=== PATIENT | female | born 1935 | race Caucasian/White ===

== ENCOUNTER → 2017-04-28 | Outpatient (CLI) | payer OTHER ==
[~2017-04-28] VITALS: Ht 157.5 cm; Wt 75.8 kg
[~2017-04-28] MED LIST: AMBEREN; AZO CRANBERRY1 EAC1 PO; BENICAR HCT 201 EACH PO; BENICAR40 MG PO; BUPRENORPHINE HC2 MG SL; COLACE100 MG PO; DIAZEPAM 5 MG5 M1 PO; DULCOLAX STOOL100 MG PO; FLEXERIL PO; IBUPROFEN 200200 M1 PO; LIPITOR40 MG PO; MEDROLDOSEPACK PO; MOBIC7.5 MG PO; NORCO 5-325 TA1 EACH PO; NORCO 7.5-3251 EACH PO; PREDNISONE 20 M20 MG PO; PROLOPRIM100 MG PO; TRAMADOL 50 MG50 MG PO; VALIUM2 MG; VALIUM2 MG PO; VALIUM5 MG PO; ZANTAC 150MG T150 MG PO; ZOFRAN ODT4 MG PO
--- NOTE | ~2017-04-28 | HPC ---
[facility] [address] [address] PAIN MANAGEMENT CONSULTATION Name: LEONIDAS FUNES Room #: REG FELISA Caitlin.#: [id number] Admission: 04/28/17 Attend Phys: Ti Blunt MD Discharge: Date of : 33 Report #: [id number] THIS REPORT FOR: //name// CC: Aditya Magana MD Followup visit for cervicalgia with occipital radicular pain. The patient is a david 81-year-old I am seeing today in Dr. Lea's absence. Dr. Lea has been following the patient for a couple of years and has provided her with cervical epidural injections quite successfully. She had her first epidural injection in our clinic in May 2016 with nearly 6 months of good relief. She had a second injection in early 2016, also providing almost 4 months of pain relief. The pain relief she says is nearly complete. The pain today is described as an ice pick sensation in the back of the neck that then radiates through the C3-C4 and C2-C3 distribution up into the neck and head. At times it bothers her in the face. Gratefully the epidural injections provide dramatic improvement. Pain score today on presentation is 10/10, it is worsened with neck movements. Prior to injection, she was tried something additional like ice, medication, but this has not helped her on this occasion and her granddaughter brought her in for an injection. She is not on blood thinners. MEDICATIONS: Include meloxicam, ranitidine, cranberry, docusate, trimethoprim, atorvastatin and Benicar. ALLERGIES: SULFA and MORPHINE. PAST MEDICAL HISTORY: Significant for osteoarthritis. Although the chart documents rheumatoid arthritis the patient said she does not carry that diagnosis and will be corrected. SOCIAL HISTORY: She lives alone, she does not drive. She has supportive family. PHYSICAL EXAMINATION: GENERAL: She is anxious 81-year-old. VITAL SIGNS: Blood pressure 160/86, heart rate 98, respirations 16. BMI is 30.5. MUSCULOSKELETAL: She moves from sitting to standing position independently. She walks with a wobbling gait. 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 HEAD AND NECK: Normal. [facility] [address] [place] [address] PAIN MANAGEMENT CONSULTATION Name: LEONIDAS FUNES Room #: REG [facility]#: [id number] Admission: 04/28/17 Attend Phys: Ti Blunt MD Discharge: Date of : 33 Report #: [id number] EXTREMITIES: Range of motion is slightly limited in flexion, extension and rotation exacerbating her symptoms of cervicalgia with radiation into the occiput. Deep tendon reflexes are 1+ at biceps, triceps and brachioradialis. Deep tendon reflexes lower extremity are absent without evidence of hyperreflexia to suggest compression of the cord. IMPRESSION: Cervicalgia with radiculopathy. RECOMMENDATIONS: 1. Repeat epidural steroid injection under fluoroscopic guidance as this has been very helpful for the patient. 2. Precautions given regarding meloxicam and nonsteroidal anti-inflammatory drugs side effects. She will have a trial off of medication to see if she needed. 3. Follow up with Dr. Lea in the future. PROCEDURE: Cervical epidural injections, C7-T1 under fluoroscopic guidance. The patient was taken to the fluoroscopic suite, placed prone, skin prepped with ChloraPrep. Skin anesthetized over C7-T1. A 20-gauge Tuohy epidural needle advanced first attempt in the epidural space with loss of resistance. There was no blood or CSF aspirated. 1 mL of Omnipaque was injected with an excellent epidurogram achieved. Cephalad spread of the dye was noted. This was then followed by 3 mL of 0.5% lidocaine mixed with 80 mg of triamcinolone. She tolerated the procedure well. There were no complications. She was taken to recovery room for observation. Followup visit is planned as needed with Dr. Lea. I did address with the granddaughter a question regarding a series of injections. It is our opinion that a standard series of injections with multiple cortisone shots carries significant potential risks for the patient, particularly in 81-year-old prone to osteoporosis. If a single injection provides greater than 3 months of meaningful pain relief, I think that we should stick with single injection and avoid series. By: [id number] Ti Blunt MD /nt
[2017-04-28 09:31] VITALS: BP 160/86
== END | disposition home or self-care (01) ==
LOC: PAIN 07:53
DX: M54.12 Radiculopathy, cervical region (principal); G89.29 Other chronic pain; M19.90 Unspecified osteoarthritis, unspecified site; Z88.2 Allergy status to sulfonamides; Z79.899 Other long term (current) drug therapy; Z98.890 Other specified postprocedural states; Z88.8 Allergy status to other drugs, medicaments and biological substances; Z88.0 Allergy status to penicillin

== ENCOUNTER 2017-06-09 11:47 | Emergency (ER) | payer OTHER ==
[~2017-06-09] VITALS: Ht 157.5 cm; Wt 73.5 kg
[2017-06-09 12:29] LABS: URINE BILIRUBIN NEGATIVE (Negative); URINE BLOOD NEGATIVE (Negative); URINE COLOR YELLOW; URINE GLUCOSE-RANDOM* NEGATIVE (Negative); URINE KETONES NEGATIVE (Negative); URINE NITRITE NEGATIVE (Negative); URINE PROTEIN (DIPSTICK) NEGATIVE (Negative); URINE UROBILINOGEN 0.2 E.U./dl (0.2-1.0)
[2017-06-09 13:14] LABS: ABSOLUTE NEUTROPHILS 3.8 thou/uL (1.4-8.2); BASOPHILS 0.7 % (0.0-2.0); EOSINOPHILS 0.5 % (0.0-3.0); HEMATOCRIT 33.7 % (37.0-47.0); HEMOGLOBIN 11.6 gm/dL (12.0-15.0); LYMPHOCYTES 22.1 % (24.0-44.0); MCH 28.6 pg (26.0-34.0); MCHC 34.4 g/dL (28.0-37.0); MCV 83.1 fL (80.0-100.0); MONOCYTES 11.6 % (1.0-8.0); PLATELET COUNT 232 thou/uL (150-400); POLYS 65.1 % (36.0-66.0); RBC 4.06 mil/uL (4.20-5.00); RDW 14.9 % (10.5-14.5); WBC 5.9 thou/uL (4.0-11.0)
[2017-06-09 13:17] LABS: CALCIUM 9.8 mg/dL (8.5-10.1); CREATININE 1.5 mg/dL (0.6-1.0)
[2017-06-09 13:21] LABS: MANUAL DIFF NO
[2017-06-09 13:23] LABS: ALBUMIN 3.9 g/dL (3.4-5.0); DIRECT BILIRUBIN 0.2 mg/dL (<0.1-0.3); TOTAL PROTEIN 7.3 g/dL (6.4-8.2)
== END 2017-06-09 14:29 | disposition home or self-care (01) ==
LOC: ER 11:47
PROVIDERS: Emergency Medicine
DX: R53.1 Weakness (principal); R53.83 Other fatigue; Z90.710 Acquired absence of both cervix and uterus; Z98.890 Other specified postprocedural states; Z88.1 Allergy status to other antibiotic agents; Z88.0 Allergy status to penicillin; Z88.2 Allergy status to sulfonamides; Z88.5 Allergy status to narcotic agent; Z88.6 Allergy status to analgesic agent

== ENCOUNTER → 2017-06-16 | Outpatient (CLI) | payer OTHER ==
[~2017-06-16] VITALS: Ht 157.5 cm; Wt 73.9 kg
[~2017-06-16] MED LIST changes: +HYDROCODONE-AP1 EAC6 PO; +ZOFRAN4 MG PO
--- NOTE | ~2017-06-16 | HPC ---
[facility] [place] [address] [place] [address] PAIN MANAGEMENT CONSULTATION Name: LEONIDAS FUNES Room #: REG [facility].#: [id number] Admission: 06/16/17 Attend Phys: Aditya Lea DO Discharge: Date of : 33 Report #: [id number] THIS REPORT FOR: //name// CC: Aditya Phan MD DATE OF SERVICE: 06/16/2017 DATE OF SERVICE: 06/16/2017 CHIEF COMPLAINT: Neck pain, upper back pain, left-sided upper extremity pain. HISTORY OF PRESENT ILLNESS: As you know, the patient is an 81-year-old female who has made an appointment in followup visit to discuss the possibility of undergoing injections in the cervical region. The patient has done very well with intra-articular facet injections and third occipital nerve blocks. She made the appointment when her pain was at a level of 8/10. She returns today for this appointment now reporting pain score 3/10. States when the pain is present, it is sharp and burning, chronic in nature. She states moving her head exacerbates symptoms, ice, medications, walking, standing, tends to alleviate symptoms, certain positions tend to exacerbate pain. She has been referred back to our clinic to discuss options for treatment. ALLERGIES: SULFA, MORPHINE. CURRENT MEDICATIONS: Ranitidine, cranberry extract, docusate sodium, trimethoprim, atorvastatin, olmesartan. SOCIAL HISTORY: The patient denies tobacco, alcohol, IV or illicit drug use. 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 She is accompanied by her granddaughter, who is present in room today. IMAGING: No new imaging available. PHYSICAL EXAMINATION: VITAL SIGNS: Blood pressure 112/63, pulse is 94, respiratory rate 16, unlabored, the patient 99% on room air, height 5 feet 2 inches tall, weight 163 pounds, BMI calculated 29.8. GENERAL: Well developed, well nourished, well hydrated 81-year-old female appearing stated age, placing current pain score 3/10. HEENT: Normocephalic, atraumatic. Pupils equal, round, reactive to light. Extraocular muscles are intact. NEUROLOGIC: Speech remains fluent. The patient deemed a fair historian. LUNGS: Clear, no wheeze, rhonchi or rales. CARDIOVASCULAR: Regular. No appreciable gallop or rub. [address] [address] PAIN MANAGEMENT CONSULTATION Name: LEONIDAS FUNES Room #: REG [facility]#: [id number] Admission: 06/16/17 Attend Phys: Aditya Lea DO Discharge: Date of : 33 Report #: [id number] ABDOMEN: Soft, nontender, obese. Normoactive bowel sounds. EXTREMITIES: Show no clubbing, no cyanosis, no edema. MUSCULOSKELETAL: Upper extremity strength remains symmetrical 5/5, intact to light touch from C5-T1 dermatomes. Deep tendon reflexes are symmetrical. Spurling test positive. There is palpatory tenderness over the paraspinal musculature, cervical spine. There is noted crepitus with rotation and lateral flexion more to leftward than right. ASSESSMENT: 1. Cervical radiculopathy. 2. Cervical spondylosis with radicular symptoms. 3. Myofascial pain. 4. Cervicalgia. 5. Chronic intractable pain. PLAN: 1. The patient has returned today in followup visit where we have discussed her recent exacerbation of symptoms. It appears that her symptoms are still related to the arthritic changes in the upper cervical region and the third occipital nerve causing radiation of symptoms over the occiput towards the postauricular area on the left. This appears to be the case in this patient again today. We discussed with the patient that 7-8/10 pain she had about 6 days ago. She made today's appointment and is now noting pain at 3/10. She has had alleviation of symptoms to the greatest degree possible leaving her with a tolerable 3/10 pain. She returns today in followup visit to discuss options for treatment. 2. We discussed with the patient options for treatment. These would include intra-articular facet injections, medial branch nerve blocks, radiofrequency lesioning including third occipital nerve on the left side. We also discussed medication management and physical therapy. After reviewing risks and benefits of all proposed treatment options, the patient chose to begin with medication therapy. 3. The patient will be started on hydrocodone 5/325 one tab every 8 hours p.r.n. for pain. I have given the patient #60 tablets, but I have advised the patient to take a half tab to one tab as needed for pain control. She is to initiate therapy with half tab. If this is effective utilize pack and half tab for pain control. If half tab is not effective, she can move to a full tab, but watch for side effects of somnolence, decreased mental acuity, disorientation, confusion, mental slowing and constipation. 4. The patient was provided a prescription of Zofran 2 mg dose 1 tab every 8 hours p.r.n. I have given the patient #45. This is to be utilized if the hydrocodone causes some nausea. The patient is confident that hydrocodone has caused nausea in the past. Yet, I am unable to find in any visit she was receiving hydrocodone. This may be something related to previous evaluations and other physician's offices. We have given the antiemetic to help for pain control if necessary. [facility] [address] [place] [address] PAIN MANAGEMENT CONSULTATION Name: LEONIDAS FUNES Room #: REG FELISA [facility]#: [id number] Admission: 06/16/17 Attend Phys: Aditya Lea DO Discharge: Date of : 33 Report #: [id number] 5. We will see the patient back in followup visit in 1 month. At that time, review efficacy of medication therapy and determine if a change in treatment may be necessary. <ELECTRONICALLY SIGNED> By: Aditya Lea DO 06/24/17 [id number] Aditya Lea DO /nt
[2017-06-16 12:52] VITALS: BP 112/63
== END | disposition home or self-care (01) ==
LOC: PAIN 05-12 11:27
DX: M47.22 Other spondylosis with radiculopathy, cervical region (principal); M79.1 Myalgia; G89.29 Other chronic pain

== ENCOUNTER → 2017-11-03 | Outpatient (CLI) | payer OTHER ==
[~2017-11-03] MED LIST changes: +CIPRO250 M1 PO; +PROCHLORPERAZINE5 M1 PO; +SENOKOT8.6 MG PO
== END ==
LOC: RAD 10:45
DX: M51.16 Intervertebral disc disorders with radiculopathy, lumbar region (principal); M25.552 Pain in left hip

== ENCOUNTER → 2018-04-27 | Outpatient (CLI) | payer OTHER ==
[~2018-04-27] VITALS: Ht 157.5 cm; Wt 74.1 kg
[~2018-04-27] MED LIST changes: -CIPRO250 M1 PO; -PROCHLORPERAZINE5 M1 PO
--- NOTE | ~2018-04-27 | HPC ---
[facility] [address] [place] [address] PAIN MANAGEMENT CONSULTATION Name: LEONIDAS FUNES [id number] Admission: 04/27/18 Attend Phys: Aditya Lea DO Discharge: Date of : 33 Report #: [id number] THIS REPORT FOR: //name// CC: Aditya Phan MD DATE OF SERVICE: 04/27/2018 CHIEF COMPLAINT: Neck pain, bilateral upper extremity pain with paresthesias. HISTORY OF PRESENT ILLNESS: As you know, the patient is an 82-year-old female who returns today in followup visit, requesting a cervical epidural injection under fluoroscopic guidance. As you are aware, the patient underwent epidural injection in low back to address low back symptoms and left lower extremity symptoms, which have nearly completely resolved. She returns unfortunately with neck pain, bilateral upper extremity pain for which she places pain score 10/10. She denies injury or trauma, returning today in followup visit to undergo cervical epidural injection under fluoroscopic guidance. ALLERGIES: SULFA, MORPHINE, IBUPROFEN, NAPROXEN. CURRENT MEDICATIONS: Ranitidine, cranberry extract, docusate sodium, trimethoprim, atorvastatin, Benicar. SOCIAL HISTORY: The patient denies tobacco, alcohol, IV or illicit drug use. She is retired, retired years ago, accompanied by her family member present in room today. IMAGING: No new imaging available. PQRS: The patient has osteoarthritis of the cervical spine and lumbar spine, bilateral knees; no rheumatoid arthritis. She indicates pain intensity today of 10/10. She is not a fall risk, has not had fallen in last 3 months. She is not on blood thinner. She is treated for hypertension. She is not on opioid, she is at low risk for opioid abuse. Pain assessment 55/70, severe. PHYSICAL EXAMINATION: VITAL SIGNS: Blood pressure 144/65, pulse 83, respiratory rate 20 and unlabored. The patient is 100% on room air. Height 5 feet 2 inches tall, weight 163.4 pounds, BMI calculated 29.9. GENERAL: Well-developed, well-nourished, well-hydrated 82-year-old female appearing stated age, placing her pain score 10/10. HEENT: Normocephalic, atraumatic. Pupils equal, round, reactive to light. EXTREMITIES: Show no clubbing, no cyanosis, no edema. [facility] [address] [place] [address] PAIN MANAGEMENT CONSULTATION Name: LEONIDAS FUNES [id number] Admission: 04/27/18 Attend Phys: Aditya Lea DO Discharge: Date of : 33 Report #: [id number] MUSCULOSKELETAL: Upper extremity strength is symmetrical, but deconditioning noted bilaterally. Deep tendon reflexes at biceps, brachioradialis and triceps equal and symmetrical. Spurlings test is equivocal. Cervical provocation testing is met with increased neck pain. ASSESSMENT: 1. Symptomatic cervical radiculopathy. 2. Cervical spondylosis with radicular symptoms. 3. Myofascial pain. 4. Cervicalgia. 5. Chronic intractable pain. PLAN: 1. The patient returns today in followup visit to undergo next is the series of cervical epidural injections. She has done very well with previous cervical epidural injections and at last visit actually underwent a lumbar epidural injection with near complete resolution of her low back pain and left lower extremity symptoms. She returns today in followup visit, reporting no injury, no trauma, but recurrence of cervical radicular pain. She has requested a cervical epidural injection be provided today. I have advised the patient of the risks and benefits, states understood and wished to proceed. 2. No medication changes made at today's visit. The patient to continue current medical therapy as previously prescribed. 3. We will see the patient back in followup visit on an as-needed basis for the next in the series of cervical epidural injections. PROCEDURE NOTE DESCRIPTION OF PROCEDURE: C7-T1 cervical epidural steroid injection under fluoroscopic guidance. After obtaining written consent, the patient was taken back to fluoroscopy suite, placed in prone position with separate pillows under chest and forehead to decrease cervical lordosis. Skin overlying cervical area then prepped and draped in aseptic fashion. C7-T1 cervical interspace identified by AP fluoroscopy. Skin and subcutaneous tissue overlying target site of injection was anesthetized with 3 mL of 1% lidocaine. A 20-gauge 3-1/2 inch Tuohy needle advanced under fluoroscopic guidance towards the epidural space using a midline approach. Epidural space identified using loss of resistance to air technique. After negative aspiration for heme or cerebrospinal fluid, 1 mL of Omnipaque injected. A cervical epidurogram confirmed using both AP and oblique fluoroscopy. After negative aspiration for heme or cerebrospinal fluid, 5 mL of a solution containing 2 mL 40 mg per mL, 80 mg total triamcinolone, 3 mL lidocaine 1% injected slowly. Needle retracted fci, flushed with 1 mL of 1% lidocaine and removed. Sterile bandage placed [address] [address] PAIN MANAGEMENT CONSULTATION Name: LEONIDAS FUNES Room #: REG [facility] Crist[facility].#: [id number] Admission: 04/27/18 Attend Phys: Aditya Lea DO Discharge: Date of : 33 Report #: [id number] over injection site. No new motor deficits present in the upper extremity following procedure. The patient tolerated procedure well, carefully escorted to recovery room in stable condition. No apparent complications. After meeting discharge criteria, the patient discharged home. <ELECTRONICALLY SIGNED> By: Aditya Lea DO 04/30/18 0815 0708 0 Aditya Lea DO /nt
[2018-04-27 10:23] VITALS: BP 144/65
== END | disposition home or self-care (01) ==
LOC: PAIN 06:34
DX: M47.22 Other spondylosis with radiculopathy, cervical region (principal); M79.1 Myalgia; G89.29 Other chronic pain; M54.2 Cervicalgia; G44.209 Tension-type headache, unspecified, not intractable; I10 Essential (primary) hypertension; Z98.890 Other specified postprocedural states; Z79.899 Other long term (current) drug therapy; Z88.0 Allergy status to penicillin; Z88.2 Allergy status to sulfonamides; Z88.6 Allergy status to analgesic agent; Z88.8 Allergy status to other drugs, medicaments and biological substances

== ENCOUNTER 2018-05-04 13:01 | Inpatient (IN) | payer OTHER ==
[~2018-05-04] VITALS: Ht 160 cm; Wt 74.8 kg
--- NOTE | ~2018-05-04 | D ---
[facility] [place] [address] DISCHARGE SUMMARY Name: LEONIDAS FUNES Room #: 452-P [facility] M.R.#: [id number] Admission: 05/04/18 Attend Phys: Yuri Díaz MD Discharge: 05/05/18 Date of : 33 Report #: [id number] THIS REPORT FOR: //name// CC: Aditya Tran MD DATE OF SERVICE: 05/05/2018 HOSPITAL COURSE: The patient is an 82-year-old female who was admitted with neck pain and urinary tract infection and instability of gait from the Emergency Room. The patient did very well a couple supplemental doses of IV fentanyl and then was given intramuscular Depo-Medrol injection at 80 mg and started on ciprofloxacin for her urinary tract infection. The following day, she felt much better. She was seen by Physical Therapy Department and educated on the "right neck exercises." She understood all the instructions and was anxious to return home today. She develops urinary tract infection while on trimethoprim. We had a discussion about it and she will be discussing further with Dr. Phan. She wants to stop it for now since it does not appear to be helping and I did not disagree with her, but she will discuss it further with Dr. Phan and follow up in his office. Hopefully, that will be in the next 1-2 weeks. She will discuss with Dr. Phan as well since she will need to return to the pain clinic for consideration of further epidural injections or other interventions. She sees Dr. Lea there. She had a creatinine of 1.5 on admission, which may well be related to hydration status and antihypertensive therapy and intermittent use of nonsteroidal anti-inflammatories. She is cautioned against using drugs like ibuprofen or Aleve frequently, although I believe it is safe for her to use them occasionally intermittently and failing those uses, to consider followup in the pain clinic for consideration of other pain control means. She does get some relief with the diazepam and will be sent home on the same dose which she had on arrival, and I instructed her to use the ibuprofen and the diazepam at the same time to get a combined effect of anti-muscle spasm and anti-inflammatory relief and she will give that a try. DISCHARGE MEDICATIONS: At the time of discharge, her medication list is as follows: Ciprofloxacin 250 mg by mouth twice daily for another 4 days, Benicar 40 mg by mouth daily, Dulcolax 100 mg by mouth as needed for hard stools up to twice a day, diazepam 5 mg 2 tablets by mouth twice daily p.r.n. muscle spasms, Senokot b.i.d. p.r.n. constipation, atorvastatin 40 mg by mouth daily, cranberry extract (Azo Cranberry softgels) daily and ranitidine 150 mg by mouth nightly. DISCHARGE DIAGNOSES: [facility] [address] [place] [address] DISCHARGE SUMMARY Name: LEONIDAS FUNES Room #: 452-P [facility] IN M.R.#: [id number] Admission: 05/04/18 Attend Phys: Yuri Díaz MD Discharge: 05/05/18 Date of : 33 Report #: [id number] 1. Intractable neck pain due to osteoarthritis of the cervical spine. 2. Osteoarthritis of the cervical spine. 3. Urinary tract infection. 4. Hypertension. 5. Hyperlipidemia. 6. Gastroesophageal reflux disease. 7. Unsteady gait. 8. Surgical history that includes hysterectomy, bladder suspension, breast biopsies, right foot surgery x 4 and left lobe thyroidectomy. Followup will be as above. Prescriptions for new medications provided. <ELECTRONICALLY SIGNED> By: Yuri Díaz MD 05/05/18 1658 [id number] Yuri Díaz MD /nt
--- NOTE | ~2018-05-04 | H ---
[facility] [place] [address] HISTORY AND PHYSICAL Name: LEONIDAS FUNES Room #: 452-P [facility] M.R.#: [id number] Admission: 05/04/18 Attend Phys: Yuri Díaz MD Discharge: 05/05/18 Date of : 31 Report #: [id number] THIS REPORT FOR: //name// CC: Yuri Phan MD DATE OF SERVICE: 05/04/2018 CHIEF COMPLAINT: Neck pain. HISTORY OF PRESENT ILLNESS: The patient is an 82-year-old female who lives at home and was brought into the Emergency Department with increasing problems of neck pain, which is a chronic issue for her and for which she recently received an epidural steroid injection in the pain clinic as well as persistent headaches related to the neck pain and some fatigue. In the Emergency Room, during her workup, she was found to have a urinary tract infection and felt not to be steady on her feet, and was admitted for further evaluation and treatment. PAST MEDICAL HISTORY: Includes osteoarthritis in multiple sites, especially in the cervical spine, but also hysterectomy, bladder suspensions, benign breast biopsy. She had surgery on her right foot 4 different times. She had a left lobectomy of the thyroid in 2009. She has a previous diagnosis of spinal stenosis, which apparently is in question. She also has hypertension, recurrent urinary tract infections, constipation, anxiety, muscle spasms, gastroesophageal reflux disease and hyperlipidemia. ALLERGIES: SHE IS ALLERGIC TO ASPIRIN, CODEINE, DOXYCYCLINE, IBUPROFEN, MORPHINE, PENICILLIN, SULFA, AND NAPROXEN BY HISTORY. SOCIAL HISTORY: She lives at home. She has a granddaughter, who is very helpful in managing her care and left knee with a note regarding consideration for fentanyl patches or lidocaine patches or other treatments for her grandmother's neck pain. FAMILY HISTORY: Noncontributory. REVIEW OF SYSTEMS: No fever or chills or sweats. She does have nausea, but no vomiting. She denies any dysuria or urinary frequency or any difference in urination from her baseline. She denies abdominal pain. She denies any new pains in her extremities, otherwise. No changes in vision or hearing or swallowing. No recent falls. At the time of her last epidural steroid injection in her left neck, she felt that there was initial improvement and then after several days, it actually got worse and that prompted her visit to the emergency room. [address] [address] HISTORY AND PHYSICAL Name: LEONIDAS FUNES Room #: 452-P [facility] IN M.R.#: [id number] Admission: 05/04/18 Attend Phys: Yuri Díaz MD Discharge: 05/05/18 Date of : 33 Report #: [id number] PHYSICAL EXAMINATION: VITAL SIGNS: In the Emergency Room, her temperature was 36.8 degrees Celsius, pulse of 92, respirations 13 per minute, blood pressure was 102/91 with an oximetry of 96% on room air. Her self-reported weight was 165 pounds. GENERAL: This is a very pleasant 82-year-old female who looks significantly younger than her stated age. HEENT: Extraocular muscles are intact. Oropharynx is moist and pink. No lesions, no exudates. I did palpate the scalp and skull and I could find no evidence of swelling as she described it. The cranial prominences posteriorly are equal on both sides on my exam. NECK: There is tenderness in the neck, however, especially on the left side and decreased range of motion on the left with some spasm in the trapezius on the left side only. Range of motion of the neck is significantly limited. There is no meningismus, however. Also note that she has no photophobia during this exam. LUNGS: Clear to auscultation bilaterally. CARDIOVASCULAR: Reveals a regular rhythm. ABDOMEN: Soft. Bowel sounds are present, no visceromegaly or masses. EXTREMITIES: Without cyanosis or clubbing. Trace edema is noted in both lower extremities distally. No other focal deficits are noted on exam today. LABORATORY DATA: On admit, the patient had a urinalysis which showed 2+ leukocytes on the dipstick, which was otherwise normal and the microscopic showed 6-15 white blood cells per high power field and 1-9 bacteria with no squamous epithelial cells and no crystals or casts. CBC showed a white count of 9500, hemoglobin of 12.7, hematocrit of 37.3. Normal red blood cell indices, platelet count 280,000, and a relatively normal differential. Chemistry showed a sodium of 138, potassium 4.1, chloride 107, bicarbonate of 19, anion gap was 12. 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 Lactic acid level done in the Emergency Room was 0.9 and normal. ASSESSMENT AND PLAN: 1. Intractable headache with cervical spine pain and muscle spasms. I think that her nausea is most likely due to the narcotics she has been receiving to treat them since admission. She initially received 25 mcg of fentanyl and this was increased slightly to 50 and she got much better relief with that. She is nonetheless quite hesitant about using narcotics because of her drug intolerances, see listed elsewhere. We spoke about this at length and in the past, she has received a list of "right neck exercises" from physical therapist, but she has not been doing them for years. Recommended we have Physical Therapy see her while she is here and work on changing her medication choices so that she uses her diazepam and a very low dose of ibuprofen, which she admits is not a true allergy on an infrequent basis. I also will give her an intramuscular [facility] [address] [place] [address] HISTORY AND PHYSICAL Name: LEONIDAS FUNES Room #: 452-P [facility] IN M.R.#: [id number] Admission: 05/04/18 Attend Phys: Yuri Díaz MD Discharge: 05/05/18 Date of : 33 Report #: [id number] cortisone injection while she is here to see if we can get further relief of her discomfort. A fentanyl patch, I think, would be a bad idea, especially in light of the recurrent urinary tract infections and a propensity towards urinary retention with such medications. 2. Urinary tract infection. This occurred while she was on trimethoprim. We will treat her with antibiotics and she will probably need to go home on an oral antibiotic in a day or two. 3. Hypertension. Her blood pressure readings have actually been lower than usual today. We will monitor and treat accordingly. We will continue her medication regimen. 4. Hyperlipidemia. Continue current medication regimen. 5. Gastroesophageal reflux disease. Continue H2 receptor antagonist therapy as this seems to be adequate for her. I did advise she use water if she has acutely upset stomach as this helps dilute the acid and relieve some of the immediate discomfort and safely. 6. Muscle spasms, the diazepam should help significantly here. She is very careful about not abusing it, but she states that she has nearly run out at home and will need a refill prescription when she goes home. 7. Chronic kidney disease, stage 2 to 3. I strongly encouraged the patient to minimize her use if not completely avoid anti-inflammatory drugs like Advil or Aleve. She does not use this very often, but has been using them at home without allergic reactions. Pain clinic appears to be a good way to go when the pain is not manageable with Tylenol and diazepam otherwise. I also advised her to discuss this with Dr. Phan. The patient develops urinary tract infection while taking trimethoprim. Since she has apparently developed resistance, I am not sure that she wants to keep taking this medicine, I advised her to speak with Dr. Phan about its continued use. It does have other uses and he may have something else in mind in giving it to her. <ELECTRONICALLY SIGNED> By: Yuri Díaz MD 05/05/18 1658 [id number] Yuri Díaz MD /nt
[~2018-05-04 13:01] MED LIST changes: -SENOKOT8.6 MG PO
[2018-05-04 13:10] VITALS: BP 102/91
[2018-05-04 13:29] LABS: URINE BILIRUBIN NEGATIVE (Negative); URINE BLOOD NEGATIVE (Negative); URINE CLARITY CLEAR; URINE COLOR YELLOW; URINE GLUCOSE-RANDOM* NEGATIVE (Negative); URINE KETONES NEGATIVE (Negative); URINE LEUKOCYTES 2+ (Negative); URINE NITRITE NEGATIVE (Negative); URINE PROTEIN (DIPSTICK) TRACE (Negative); URINE SPECIFIC GRAVITY 1.015 (1.005-1.035); URINE UROBILINOGEN 0.2 E.U./dl (0.2-1.0)
[2018-05-04 13:52] LABS: BACTERIA 1-9 Few /HPF (None Seen); CASTS None Seen /LPF (None Seen); CRYSTALS None Seen /LPF (None Seen); SQUAMOUS None Seen /LPF (0-3); URINE RBC None Seen /HPF (0-2); URINE WBC 6-15 Few /HPF (0-5)
[2018-05-04 14:17] LABS: ABSOLUTE NEUTROPHILS 7.3 thou/uL (1.4-8.2); BASOPHILS 0.4 % (0.0-2.0); EOSINOPHILS 0.1 % (0.0-3.0); HEMATOCRIT 37.3 % (37.0-47.0); HEMOGLOBIN 12.7 gm/dL (12.0-15.0); LYMPHOCYTES 14.6 % (24.0-44.0); MCHC 33.9 g/dL (28.0-37.0); MCV 85.6 fL (80.0-100.0); MONOCYTES 7.7 % (1.0-8.0); PLATELET COUNT 280 thou/uL (150-400); POLYS 77.2 % (36.0-66.0); RBC 4.36 mil/uL (4.20-5.00); RDW 13.1 % (10.5-14.5); WBC 9.5 thou/uL (4.0-11.0)
[2018-05-04 14:18] VITALS: BP 102/91
[2018-05-04] MEDS ORDERED: SENOKOT8.6 MG PO (14:23)
[2018-05-04] MEDS ORDERED: VALIUM5 MG PO (14:23)
[2018-05-04 14:30] LABS: CALCIUM 9.5 mg/dL (8.5-10.1); CREATININE 1.5 mg/dL (0.6-1.0); POTASSIUM 4.1 mmol/L (3.5-5.1)
[2018-05-04 14:42] VITALS: BP 130/81
[2018-05-04 16:00] VITALS: BP 119/52
[2018-05-04 19:18] VITALS: BP 113/50
[2018-05-05 04:11] VITALS: BP 123/93
[2018-05-05 04:54] LABS: ANION GAP 11 mmol/L (7-16); BUN 36 mg/dL (7-18); CALCIUM 9.1 mg/dL (8.5-10.1); CHLORIDE 107 mmol/L (98-107); CO2 22 mmol/L (21-32); CREATININE 1.7 mg/dL (0.6-1.0); GLUCOSE 166 mg/dL (74-106); POTASSIUM 4.3 mmol/L (3.5-5.1); SODIUM 140 mmol/L (136-145); URIC ACID* 6.9 mg/dL (2.6-7.2)
[2018-05-05 07:35] VITALS: BP 142/67
[2018-05-05] MEDS ORDERED: IBUPROFEN 200200 M1 PO (09:49)
[2018-05-05] MEDS ORDERED: CIPRO250 M1 PO (09:49)
[2018-05-05] MEDS ORDERED: PROCHLORPERAZINE5 M1 PO (09:50)
[2018-05-05 10:07] VITALS: BP 142/67
== END 2018-05-05 12:38 | disposition home or self-care (01) | DRG 552 ==
LOC: ER 13:01 → EROBS 13:48 → 4W 13:48 → ENTRNSPT 05-05 12:12 → EDTRNSPTSTS 05-05 12:14 → 4W 05-05 12:38
PROVIDERS: Emergency Medicine; Internal Medicine
DX: M47.892 Other spondylosis, cervical region (principal); N39.0 Urinary tract infection, site not specified; E78.5 Hyperlipidemia, unspecified; K21.9 Gastro-esophageal reflux disease without esophagitis; R26.9 Unspecified abnormalities of gait and mobility; E89.0 Postprocedural hypothyroidism; N18.3 Chronic kidney disease, stage 3 (moderate); R11.0 Nausea; T40.605A Adverse effect of unspecified narcotics, initial encounter; Y92.89 Other specified places as the place of occurrence of the external cause; Z90.710 Acquired absence of both cervix and uterus; Z79.899 Other long term (current) drug therapy; Z88.6 Allergy status to analgesic agent; Z88.1 Allergy status to other antibiotic agents; Z88.5 Allergy status to narcotic agent; Z88.0 Allergy status to penicillin; Z88.2 Allergy status to sulfonamides; Z88.8 Allergy status to other drugs, medicaments and biological substances
CPT/HCPCS: 10040

== ENCOUNTER → 2018-10-26 | Outpatient (CLI) | payer OTHER ==
[~2018-10-26] MED LIST changes: +CIPRO250 M1 PO; +PROCHLORPERAZINE5 M1 PO; +SENOKOT8.6 MG PO
== END ==
LOC: RAD 10:25
DX: M47.816 Spondylosis without myelopathy or radiculopathy, lumbar region (principal); M16.12 Unilateral primary osteoarthritis, left hip; M48.061 Spinal stenosis, lumbar region without neurogenic claudication; M51.36 Other intervertebral disc degeneration, lumbar region; M25.752 Osteophyte, left hip; M11.252 Other chondrocalcinosis, left hip; M41.86 Other forms of scoliosis, lumbar region; M43.16 Spondylolisthesis, lumbar region; M25.78 Osteophyte, vertebrae

== ENCOUNTER → 2019-01-25 | Outpatient (CLI) | payer OTHER ==
[~2019-01-25] VITALS: Ht 160 cm; Wt 75.2 kg
[2019-01-25 10:29] VITALS: BP 145/75
--- NOTE | 2019-01-25 10:48 | NUR ---
Pain Clinic Assessment: 1. History of Osteoarthritis: LEGS History of Rheumatoid Arthritis: Not Applicable 2. Height: 5 ft. 3 in. 160.0 cm. Weight: 165.8 lb. oz. 75.206 kg. Patient's BMI: 29.4 3. Vital Signs: BP: 145/75 Pulse: 91 Resp: 20 Temp: 02 Sat: 100 ECG Mon: 4. Pain Intensity: 8 5. Fall Risk: Dizziness: Y Needs help standing or walking: N Fallen in the last 3 months: N Fall risk comments: 6. Patient on Blood Thinner: None 7. History of Hypertension: Y 8. Opioid Therapy greater than 6 weeks: N Opiate Contract Signed: 9. Risk Assessment Tool Provided: LOW RISK 0/3 10. Functional Assessment Tool: 55/70 11. Recreational Drug Use: Never Drug Type: Tobacco Use: Never Smoker Tobacco Type: Amount or Packs/day: How Many Years: Alcohol Use: No Frequency: Quant:
--- NOTE | 2019-01-26 12:39 | HPC ---
[facility] [address] [place] [address] PAIN MANAGEMENT CONSULTATION Name: LEONIDAS FUNES Room #: REG [facility].#: [id number] Admission: 01/25/19 ������������������ Attend Phys: Aditya Lea DO Discharge: ������������������ Date of : 33 Report #: [id number] THIS REPORT FOR: //name// CC: Aditya Phan MD DATE OF SERVICE: 01/25/2019 REFERRING PHYSICIAN: Buddy Phan M.D. CHIEF COMPLAINT: Neck pain and left upper extremity pain with paresthesias. HISTORY OF PRESENT ILLNESS: As you know, the patient is an 83-year-old female who returns today in followup visit to undergo next in the series of cervical epidural injections under fluoroscopic guidance. The patient reports pain today at level of 8/10. She states that the previous cervical epidural injection provided on 04/27/2018 gave 100% improvement in overall pain lasting for nearly 8 months. She has had a slow and progressive return of symptoms without inciting injury or trauma, returning today in followup visit to undergo next in the series of cervical epidural injections. The patient indicates pain is sharp, pounding, numbness and tingling when describing symptoms exacerbated with activities. She returns to undergo next in the series of cervical epidural injections in hopes of improving cervical radicular pain. ALLERGIES: SULFA, MORPHINE and NAPROXEN. CURRENT MEDICATIONS: Ranitidine, Senokot, diazepam, cranberry extract, docusate sodium, atorvastatin and olmesartan. SOCIAL HISTORY: The patient denies tobacco, alcohol or IV or illicit drug use. She is retired, retired in 1988, unaccompanied today. IMAGING DATA: No new imaging available. PQRS: The patient has no known osteoarthritic changes of the cervical spine and lumbar spine. No rheumatoid arthritis. She is placing pain intensity today 8/10. She is not a fall risk, has not had a fall in the last 3 months. She is not on any blood thinners. She is treated for hypertension. She is not on opioids but does have a low opioid addiction potential. Pain impact score 55/70 indicating severe interference of daily activities secondary to pain. PHYSICAL EXAMINATION: VITAL SIGNS: Blood pressure 145/75, pulse 91 and respiratory rate 20 and unlabored. The patient is 100% on room air. Height 5 feet 3 inches tall, weight 165.8 pounds and BMI calculated 29.4. [facility] [address] [place] [address] PAIN MANAGEMENT CONSULTATION Name: LEONIDAS FUNES [facility] [id number] Admission: 01/25/19 ������������������ Attend Phys: Aditya Lea DO Discharge: ������������������ Date of : 33 Report #: [id number] GENERAL: Well-developed, well-nourished and well-hydrated 83-year-old female appearing stated age, placing current pain score at around 8/10. HEENT: Normocephalic and atraumatic. Pupils equal, round and reactive to light. EXTREMITIES: Show no clubbing, no cyanosis and no edema. MUSCULOSKELETAL: Upper extremity strength appears symmetrical 5/5, intact to light touch from C5-T1 dermatomes. Spurling's test is equivocal to the left, negative right. ASSESSMENT: 1. Cervical radiculopathy. 2. Displacement of cervical intervertebral disk with radiculopathy. 3. Cervical spondylosis with radiculopathy. 4. Chronic intractable pain. PLAN: 1. The patient returns today in followup visit requesting to undergo next in the series of cervical epidural injections under fluoroscopic guidance. The patient reported an excellent improvement in symptoms, near 100% improvement in overall pain lasting for nearly 8 months with previous injection. She returns without inciting injury or trauma with pain level of 8/10, requesting next in the series of cervical epidural injections to address recurrent symptoms. The patient indicates pain is in the same distribution at about the same intensity as our visit nearly 1 year ago. The patient was advised risks and benefits of a cervical epidural injection. These risks include but not necessarily limited to bleeding, bruising, infection, worsening pain, no relief of pain, also risk of temporary or permanent muscle weakness, temporary or permanent nerve damage, possible paralysis and . The patient states understood and wished to proceed. 2. No medication changes made at today's visit. The patient will continue current medical therapy as previously prescribed. 3. We will see the patient back in followup visit on an as needed basis for possible next in the series of cervical epidural injections. PROCEDURE NOTE DESCRIPTION OF PROCEDURE: C7-T1 cervical epidural steroid injection under fluoroscopic guidance. After obtaining written consent, the patient was taken back to fluoroscopy suite, placed in prone position with pillow under chest and forehead to decrease cervical lordosis. Skin overlying the cervical area was then prepped and draped in aseptic fashion. The C7-T1 cervical interspace identified by AP fluoroscopy. Skin and subcutaneous tissue overlying target site of injection was anesthetized with 3 mL of 1% lidocaine. [facility] [address] [place] [address] PAIN MANAGEMENT CONSULTATION Name: LEONIDAS FUNES [facility] [id number] Admission: 01/25/19 ������������������ Attend Phys: Aditya Lea DO Discharge: ������������������ Date of : 33 Report #: [id number] A 20-gauge 3-1/2 inch Tuohy needle advanced under fluoroscopic guidance towards the epidural space using midline approach. Epidural space identified using loss of resistance to air technique. After negative aspiration for heme or cerebrospinal fluid, 1 mL of Omnipaque injected. A cervical epidurogram confirmed using both AP and oblique fluoroscopy. After negative aspiration for heme or cerebrospinal fluid, 5 mL of a solution containing 2 mL 40 mg per mL, 80 mg total triamcinolone and 3 mL of lidocaine 1% injected slowly. Needle then retracted approximately half way, flushed with 1 mL of 1% lidocaine and then removed. Sterile bandage placed over injection site. No new motor deficits present in the upper extremities following procedure. The patient tolerated procedure well, carefully escorted to recovery room in stable condition. No apparent complications. After meeting discharge criteria, the patient discharged home. ��������������������������������������������� <ELECTRONICALLY SIGNED> ���������������������������������������� By: Aditya Lea DO ��������������������������������������������� 01/26/19 1239 [id number] Aditya Lea DO /nt
== END | disposition home or self-care (01) ==
LOC: PAIN 07:02
DX: M50.10 Cervical disc disorder with radiculopathy, unspecified cervical region (principal); M47.22 Other spondylosis with radiculopathy, cervical region; G89.29 Other chronic pain; I10 Essential (primary) hypertension; Z88.2 Allergy status to sulfonamides; Z88.8 Allergy status to other drugs, medicaments and biological substances; Z79.899 Other long term (current) drug therapy; Z88.0 Allergy status to penicillin; Z87.440 Personal history of urinary (tract) infections; Z98.890 Other specified postprocedural states

== ENCOUNTER → 2019-03-01 | Outpatient (CLI) | payer OTHER ==
[~2019-03-01] VITALS: Ht 160 cm; Wt 73.8 kg
[~2019-03-01] MED LIST changes: +ROBAXIN500 MG PO
[2019-03-01 10:48] VITALS: BP 132/72
--- NOTE | 2019-03-01 11:04 | NUR ---
Pain Clinic Assessment: 1. History of Osteoarthritis: LEGS History of Rheumatoid Arthritis: Not Applicable 2. Height: 5 ft. 3 in. 160.0 cm. Weight: 162.8 lb. oz. 73.846 kg. Patient's BMI: 28.8 3. Vital Signs: BP: 132/72 Pulse: 86 Resp: 20 Temp: 02 Sat: 100 ECG Mon: 4. Pain Intensity: 2 5. Fall Risk: Dizziness: Y Needs help standing or walking: N Fallen in the last 3 months: N Fall risk comments: 6. Patient on Blood Thinner: None 7. History of Hypertension: Y 8. Opioid Therapy greater than 6 weeks: N Opiate Contract Signed: 9. Risk Assessment Tool Provided: LOW RISK 0/3 10. Functional Assessment Tool: 55/70 11. Recreational Drug Use: Never Drug Type: Tobacco Use: Never Smoker Tobacco Type: Amount or Packs/day: How Many Years: Alcohol Use: No Frequency: Quant:
--- NOTE | 2019-03-08 10:49 | HPC ---
[facility] [address] [place] [address] PAIN MANAGEMENT CONSULTATION Name: LEONIDAS FUNES [id number] Admission: 03/01/19 ������������������ Attend Phys: Aditya Lea DO Discharge: ������������������ Date of : 33 Report #: [id number] THIS REPORT FOR: //name// CC: Aditya Phan MD DATE OF SERVICE: 03/01/2019 CHIEF COMPLAINT: Neck pain, left head pain. HISTORY OF PRESENT ILLNESS: As you know, the patient is an 83-year-old female who returns today in followup visit with continued neck pain, left head pain. We saw the patient in clinic 01/25/2019 where she underwent a cervical epidural injection under fluoroscopic guidance. The patient reports that epidural injection provided only 35% improvement in overall pain, lasting for less than 2 weeks. She returns today in followup visit with continued left head and neck pain, appears to be facet arthropathy related versus atypical migraine. She does have a history of migraine headaches that do present similarly. She returns to discuss options for treatment. ALLERGIES: SULFA, MORPHINE, NAPROXEN. CURRENT MEDICATIONS: Senokot-S 1 tab per day, diazepam 5 mg b.i.d., ranitidine 150 mg once a day, cranberry extract 1 tab per day, docusate sodium 100 mg once a day, atorvastatin 40 mg per day, olmesartan 40 mg per day. SOCIAL HISTORY: The patient denies tobacco, alcohol, IV or illicit drug use. She is unaccompanied today. IMAGING: There is no new imaging available. PQRS: The patient has arthritic changes of the cervical spine, lumbar spine, bilateral hips and bilateral knees. No rheumatoid arthritis. She is placing pain intensity 2/10. She is not a fall risk, has not had a fall in last 3 months. She is not on blood thinners. She is treated for hypertension. She is not on opioids and has a low opioid addiction potential. She is placing current pain impact score 55/70 indicating severe interference of daily activities secondary to pain. PHYSICAL EXAMINATION: VITAL SIGNS: Blood pressure 132/72, pulse 86, respiratory rate 20 and unlabored. The patient is 100% on room air. Height 5 feet 3 inch tall, weight 162.8 pounds, BMI calculated 28.8. GENERAL: Well-developed, well-nourished, well-hydrated 83-year-old female appearing stated age. Pain is rated at around 2/10. [address] [address] PAIN MANAGEMENT CONSULTATION Name: LEONIDAS FUNES Room #: REG [facility]#: [id number] Admission: 03/01/19 ������������������ Attend Phys: Aditya Lea DO Discharge: ������������������ Date of : 33 Report #: [id number] HEENT: Normocephalic, atraumatic. Pupils are equal, round, reactive to light. EXTREMITIES: Show no clubbing, no cyanosis, and no edema. MUSCULOSKELETAL: The patient does have some palpatory tenderness over the paraspinal musculature of the cervical spine, left greater than right. Deep palpation over the facet joints causes intensification of pain. Cervical provocation testing including extension, rotation, lateral flexion to the left intensify neck pain. No radiation of symptoms in typical cervical radicular symptom pattern. Spurling's test remains equivocal on the left, negative right. ASSESSMENT: 1. Chronic cervical radiculopathy. 2. Cervical spondylosis with radiculopathy. 3. Chronic intractable pain. PLAN: 1. The patient returns today in followup visit, unfortunately only noticing 35% improvement in overall pain with the previous cervical epidural injection. We would not recommend continuing this option of treatment given the lack of long-term efficacy and the lack of significant improvement. There is a strong possibility that the patient's symptoms are related to the facet joints at the cervical spine. We have discussed this with the patient today. We, at [facility], do not provide radiofrequency lesioning of the medial branch nerves of the cervical spine. The patient will need to be referred to a new pain clinic if primary care wishes to have the patient evaluated for this issue. We would recommend the patient undergo medial branch nerve blocks initially. If these are effective, then move forward with radiofrequency lesioning of medial branch nerves to address her cervical facet arthropathy pain. If the patient wishes to do so, she can contact Dr. Buddy Phan, the referring physician and to have referrals made to another pain clinic that does provide this type of option of treatment. 2. The patient and I have had a discussion about the use of nonsteroidal anti-inflammatories. She states she had good efficacy with the meloxicam, has subsequently discontinued its use. We would recommend the patient reinitiate the meloxicam therapy utilizing 7.5 mg tablet b.i.d. She has 15 mg available to her in tablet form. She can cut these medications in half. We would recommend taking it with breakfast and dinner time. This will give the patient a good baseline level of anti-inflammatory efficacy. 3. The patient and I did discuss the possibility of having her evaluated by Neurology in regards to history of migraine headaches, which could present in a similar fashion. We will defer to the primary team for referrals to Neurology if they feel it is warranted. 4. We will see the patient back in followup visit on an as needed basis. We wish her luck if she does begin treatment for radiofrequency lesioning of the [facility] [address] [place] [address] PAIN MANAGEMENT CONSULTATION Name: LEONIDAS FUNES Room #: REG [facility]#: [id number] Admission: 03/01/19 ������������������ Attend Phys: Aditya Lea DO Discharge: ������������������ Date of : 33 Report #: [id number] cervical medial branch nerves. Again, we wish to thank you for the opportunity to work with this patient in consultations. ��������������������������������������������� <ELECTRONICALLY SIGNED> ���������������������������������������� By: Aditya Lea DO ��������������������������������������������� 03/08/19 1049 [id number] Aditya Lea DO /nt
== END ==
LOC: PAIN 02-15 06:49
DX: M47.22 Other spondylosis with radiculopathy, cervical region (principal); G89.29 Other chronic pain

== ENCOUNTER 2019-03-08 11:23 | Emergency (ER) | payer OTHER ==
[~2019-03-08] VITALS: Ht 160 cm; Wt 73.5 kg
[~2019-03-08 11:23] MED LIST changes: -ROBAXIN500 MG PO
[2019-03-08] MEDS ORDERED: ROBAXIN500 MG PO ×2 (12:56→14:59)
[2019-03-08 12:58] VITALS: BP 149/71
== END 2019-03-08 12:58 | disposition home or self-care (01) ==
LOC: ER 11:23
DX: G43.909 Migraine, unspecified, not intractable, without status migrainosus (principal); G44.209 Tension-type headache, unspecified, not intractable; G89.29 Other chronic pain; M54.2 Cervicalgia; Z88.0 Allergy status to penicillin; Z88.1 Allergy status to other antibiotic agents; Z88.2 Allergy status to sulfonamides; Z88.6 Allergy status to analgesic agent; Z88.5 Allergy status to narcotic agent; Z88.8 Allergy status to other drugs, medicaments and biological substances

== ENCOUNTER → 2019-08-23 | Outpatient (CLI) | payer OTHER ==
[~2019-08-23] VITALS: Ht 160 cm; Wt 74.6 kg
[~2019-08-23] MED LIST changes: +ROBAXIN500 MG PO
[2019-08-23 10:09] VITALS: BP 165/74
--- NOTE | 2019-08-23 10:22 | NUR ---
Pain Clinic Assessment: 1. History of Osteoarthritis: LEGS NECK History of Rheumatoid Arthritis: Not Applicable 2. Height: 5 ft. 3 in. 160.0 cm. Weight: 164.4 lb. oz. 74.571 kg. Patient's BMI: 29.1 3. Vital Signs: BP: 165/74 Pulse: 90 Resp: 16 Temp: 02 Sat: 98 ECG Mon: 4. Pain Intensity: 8-9 5. Fall Risk: Dizziness: N Needs help standing or walking: N Fallen in the last 3 months: N Fall risk comments: 6. Patient on Blood Thinner: None 7. History of Hypertension: Y 8. Opioid Therapy greater than 6 weeks: N Opiate Contract Signed: 9. Risk Assessment Tool Provided: LOW RISK 0/3 10. Functional Assessment Tool: 55/70 11. Recreational Drug Use: Never Drug Type: Tobacco Use: Never Smoker Tobacco Type: Amount or Packs/day: How Many Years: Alcohol Use: No Frequency: Quant:
--- NOTE | 2019-08-23 16:27 | HPC ---
[facility] [address] [place] [address] PAIN MANAGEMENT CONSULTATION Name: LEONIDAS FUNES Room #: REG [facility].#: [id number] Admission: 08/23/19 Attend Phys: Aditya Lea DO Discharge: Date of : 33 Report #: [id number] THIS REPORT FOR: //name// CC: Aditya Phan MD DATE OF SERVICE: 08/23/2019 CHIEF COMPLAINT: Neck pain, left head pain, left upper extremity pain. HISTORY OF PRESENT ILLNESS: As you know, the patient is an 84-year-old female who returns today in followup visit requesting to undergo next in the series of cervical epidural injections under fluoroscopic guidance. She has had a slow and progressive return of symptoms that she reports as sharp, tenderness and throbbing. She indicates pain level of 8-9/10. She states stress and activity exacerbates symptoms. Medications, repositioning and the previous cervical epidural injections have been beneficial. Most recent epidural injection provided up to 80% improvement in overall pain lasting for nearly 7 months. She returns today in followup visit requesting next in a series of cervical epidural injections. She denies injury or trauma that may have led to symptom reoccurrence. ALLERGIES: SULFA, MORPHINE, NAPROXEN. CURRENT MEDICATIONS: See chart. SOCIAL HISTORY: The patient denies tobacco, alcohol, IV or illicit drug use. She is unaccompanied today. IMAGING: No new imaging available. PQRS: The patient has known arthritic changes of the cervical spine, lumbar spine, bilateral hips and knees. No rheumatoid arthritis. She is placing pain intensity today at 8-9/10. She is not a fall risk, has not had a fall in last 3 months, not on blood thinners, but is treated for hypertension. She is not on chronic opioids and does have a low opiate addiction potential. Pain impact score 55/70 indicating severe interference of daily activities secondary to pain. PHYSICAL EXAMINATION: VITAL SIGNS: Blood pressure 165/74, pulse is 90, respiratory rate 16 and unlabored. The patient is 98% on room air. Height 5 feet 3 inches tall, weight 164.4 pounds, BMI calculated 29.1. GENERAL: Well-developed, well-nourished, well-hydrated 84-year-old female appearing stated age, pain is rated today at 8-9/10. [address] [address] PAIN MANAGEMENT CONSULTATION Name: LEONIDAS FUNES [facility] [id number] Admission: 08/23/19 Attend Phys: Aditya Lea DO Discharge: Date of : 33 Report #: [id number] HEENT: Normocephalic, atraumatic. Pupils equal, round, reactive to light. EXTREMITIES: Show no clubbing, no cyanosis, and no edema. MUSCULOSKELETAL: Upper extremity strength appears symmetrical. Spurling's test is positive on the left, negative right. Cervical provocation testing is met with increased neck pain with radiation on the left side. ASSESSMENT: 1. Symptomatic cervical radiculopathy. 2. Cervical spondylosis with radiculopathy. 3. Chronic intractable pain. PLAN: 1. The patient returns today in followup visit having noted 80% improvement in overall pain lasting for nearly 7 months with previous cervical epidural injection. She returns today in followup visit with slow and progressive return of symptoms. The patient denies specific injury or trauma that may have led to symptom reoccurrence. She returns today per the request of her PCP to undergo next in the series of cervical epidural injections to build on success of previous intervention. The patient denies injury or trauma that led to symptom reoccurrence. She has had no changes in medical history, not on any blood thinners at this time. The patient was advised risks and benefits of a cervical epidural injection. These risks include but are not necessarily limited to bleeding, bruising, infection, worsening pain, no relief of pain, also risk of temporary or permanent muscle weakness, temporary or permanent nerve damage, possible paralysis, post-dural puncture headache and . The patient states understood and wished to proceed. 2. No medication changes made at today's visit. The patient will continue current medical therapy as previously prescribed. 3. We will see the patient back in followup visit for possible next in the series of cervical epidural injections. PROCEDURE NOTE DESCRIPTION OF PROCEDURE: C7-T1 cervical epidural steroid injection under fluoroscopic guidance. After obtaining written consent, the patient was taken back to fluoroscopy suite, placed in prone position with pillow under the chest and forehead to decrease cervical lordosis. Skin overlying cervical area then prepped and draped in aseptic fashion. C7-T1 cervical interspace identified by AP fluoroscopy. Skin and subcutaneous tissue overlying target site of injection anesthetized with 3 mL of 1% lidocaine. A 20-gauge 3-1/2 inch Tuohy needle advanced under fluoroscopic guidance towards [address] [address] PAIN MANAGEMENT CONSULTATION Name: LEONIDAS FUNES Room #: [facility]#: [id number] Admission: 08/23/19 Attend Phys: Aditya Lea DO Discharge: Date of : 33 Report #: [id number] the epidural space using a midline approach. Epidural space identified using loss of resistance to air technique. After negative aspiration for heme or cerebrospinal fluid, 1 mL of Omnipaque injected. A cervical epidurogram confirmed using both AP and oblique fluoroscopy. After negative aspiration for heme or cerebrospinal fluid, 5 mL of a solution containing 2 mL 40 mg per mL, 80 mg total triamcinolone along with 3 mL lidocaine 1% injected slowly. Needle retracted care home, flushed with 1 mL of 1% lidocaine and removed. Sterile bandage placed over injection site. No new motor deficits in the upper extremity following procedure. The patient tolerated procedure well, carefully escorted to recovery room in stable condition. No apparent complications. After meeting discharge criteria, the patient discharged home. <ELECTRONICALLY SIGNED> By: Aditya Lea DO 08/23/19 1627 1157 1347 Aditya Lea DO /nt
== END | disposition home or self-care (01) ==
LOC: PAIN 06:49
DX: M47.22 Other spondylosis with radiculopathy, cervical region (principal); G89.29 Other chronic pain; I10 Essential (primary) hypertension; M19.90 Unspecified osteoarthritis, unspecified site; Z98.890 Other specified postprocedural states; Z79.899 Other long term (current) drug therapy; Z88.0 Allergy status to penicillin; Z88.8 Allergy status to other drugs, medicaments and biological substances; Z88.2 Allergy status to sulfonamides

== ENCOUNTER → 2020-03-06 | Outpatient (CLI) | payer OTHER ==
[~2020-03-06] VITALS: Ht 160 cm; Wt 75.6 kg
[~2020-03-06] MED LIST changes: +HYDROCODON-ACE1 EAC7 PO; +PRILOSEC OTC20 MG PO; +TIZANIDINE HCL 22 M1 PO
[2020-03-06 10:59] VITALS: BP 154/73
--- NOTE | 2020-03-06 11:14 | NUR ---
Pain Clinic Assessment: 1. History of Osteoarthritis: LEGS NECK History of Rheumatoid Arthritis: Not Applicable 2. Height: 5 ft. 3 in. 160.0 cm. Weight: 166.6 lb. oz. 75.569 kg. Patient's BMI: 29.5 3. Vital Signs: BP: 154/73 Pulse: 94 Resp: 18 Temp: 02 Sat: 98 ECG Mon: 4. Pain Intensity: 8-9 5. Fall Risk: Dizziness: N Needs help standing or walking: Y Fallen in the last 3 months: N Fall risk comments: 6. Patient on Blood Thinner: None 7. History of Hypertension: Y 8. Opioid Therapy greater than 6 weeks: N Opiate Contract Signed: 9. Risk Assessment Tool Provided: LOW RISK 0/3 10. Functional Assessment Tool: 55/70 11. Recreational Drug Use: Never Drug Type: Tobacco Use: Never Smoker Tobacco Type: Amount or Packs/day: How Many Years: Alcohol Use: No Frequency: Quant:
--- NOTE | 2020-03-07 13:15 | HPC ---
[facility] [place] [address] PAIN MANAGEMENT CONSULTATION Name: LEONIDAS FUNES Room #: REG [facility].#: [id number] Admission: 03/06/20 Attend Phys: Aditya Lea DO Discharge: Date of : 33 Report #: [id number] THIS REPORT FOR: cc: Buddy Phan MD, Stanley P. MD Johnson, James E. DO ~ DATE OF SERVICE: 03/06/2020 REFERRING PHYSICIAN: Buddy Phan MD CHIEF COMPLAINT: Neck pain, left head pain. HISTORY OF PRESENT ILLNESS: As you know, the patient is a very pleasant 84-year-old very confused female reporting pain today at a level of 8-9/10. She is very upset as she had to wait for 5 days for an appointment at our clinic. Interestingly, the patient canceled her appointment last week without remembering. She continues to have neck pain, left head pain for which she returns today to undergo next in the series of cervical epidural injections. She has also requested a possible adjustment in medication management. The patient has had significant cognitive changes since our last visit based on my recollection as well as the patient's granddaughter who is present in room today. I am concerned about this patient who is living at home and utilizing medications without supervision. She returns to discuss cervical epidural injection and medication treatment. ALLERGIES: SULFA, MORPHINE, NAPROXEN. CURRENT MEDICATIONS: Olmesartan 40 mg once a day, atorvastatin 40 mg per day, docusate sodium 100 mg per day, cranberry extract 1 tab per day, Senokot-S 1 tab per day, methocarbamol 500 mg b.i.d., omeprazole 20 mg per day. SOCIAL HISTORY: The patient denies tobacco, alcohol, IV or illicit drug use. She is retired. She is living at home independently. She is accompanied by her granddaughter present in room today. IMAGING: No new imaging available. PQRS: The patient has arthritic changes of the cervical spine, lumbar spine, bilateral hips, and bilateral knees. No rheumatoid arthritis. She is placing pain today at 8-9/10. She is a fall risk, but has not had a fall in last 3 months. She is not on blood thinners, but is treated for hypertension. She is on no opioid medications, has a low opioid addiction potential. Pain impact score 55/70 indicating severe interference of daily activities secondary to pain. [facility] [address] [place] [address] PAIN MANAGEMENT CONSULTATION Name: LEONIDAS FUNES Room #: REG CL [facility]#: [id number] Admission: 03/06/20 Attend Phys: Aditya eLa DO Discharge: Date of : 33 Report #: [id number] PHYSICAL EXAMINATION: VITAL SIGNS: Blood pressure 154/73, pulse 94, respiratory rate 18 and unlabored. The patient is 98% on room air. Height 5 feet 3 inches tall, weight 166.6 pounds, BMI calculated 29.5. GENERAL: Well-developed, well-nourished, well-hydrated, confused 84-year-old female appearing stated age. Pain placed somewhere between 8-9/10. HEENT: Normocephalic, atraumatic. Pupils equal, round and reactive. NEUROLOGIC: Speech is fluent. The patient is deemed a poor historian. EXTREMITIES: Show no clubbing, no cyanosis, and no edema. MUSCULOSKELETAL: Palpatory tenderness is once again noted over the paraspinal musculature of the cervical spine, left greater than right. Cervical provocation testing is met with increasing pain with extension, rotation, lateral flexion all to the left. Spurling's test is equivocal on the left, negative right. Muscle bulk and tone equal and symmetrical in upper extremities, deconditioning noted bilaterally. ASSESSMENT: 1. Chronic cervical radiculopathy. 2. Cervical spondylosis with radiculopathy. 3. Increasing confusion. 4. Chronic intractable pain. PLAN: 1. The patient returns today in followup visit where she is describing her ongoing pain issues and things that exacerbate symptoms. She is very hard to follow from a logic standpoint. She has been having some increasing cognitive decline over the past couple of months. This has been witnessed by her family, specifically her granddaughter, who is her DPOA, who is present in room today, but also noted by myself and my nursing staff from our visit of July. This is likely due to increasing age and some of the social isolation she has been experiencing. I do feel that discussions need to be made with the DPOA in regards to finding either a facility the patient would be better suited to fit into likely a memory facility or possibly a move to family members who can assist the patient on a daily basis. I do feel that she is in danger of living on her own. DP will have that discussion with the family members and discuss with the patient their plans. 2. The patient has been consented and we will perform a cervical epidural injection under fluoroscopic guidance. The patient reports improvement in symptoms with the cervical epidural injection, but she cannot remember the level of improvement she received and how long the improvement was present. Based on the granddaughter who is present in room, her symptoms began about 2 weeks ago. This would indicate good efficacy with the injection from July and we will have the patient undergo the procedure today. The patient has been advised of the risks and benefits of the procedure, states understood and wished to proceed. 3. The patient and her granddaughter have requested assistance with medication [facility] [address] [place] [address] PAIN MANAGEMENT CONSULTATION Name: LEONIDAS FUNES Room #: REG [facility].#: [id number] Admission: 03/06/20 Attend Phys: Aditya Lea DO Discharge: Date of : 33 Report #: [id number] management. I have voiced my concern in regards to starting the patient on medications for pain, specifically with cognition issues in elderly. The patient and the DPOA indicate they will consider it with her medications. In fact, the granddaughter indicates that she will be the only one providing those medications to her grandmother. 4. The patient was provided a hydrocodone/acetaminophen 5/325 one tab p.o. q. 8 hours p.r.n. for pain. I have given the patient #30 tablets. I advised the patient to take the medication only when pain is intolerable, not to rely on the medication prophylactically. We discussed the possibility of starting the patient on tramadol, but apparently she had some severe cognition issues with that medication. We utilized low dose hydrocodone. 5. The patient was provided a change from her methocarbamol to tizanidine in hopes of gaining better analgesic benefit from a muscle spasm standpoint. I have given the patient 2 mg tablet 1 tab p.o. b.i.d., #60 tablets, 2 refills. The patient was advised not to take this medication and try to drive or operate heavy equipment. 6. The patient was given a prescription of Zofran 4 mg dose 1 tab every 8 hours p.r.n. I have given the patient #60 tablets with no refills. The patient was advised to take this medication when symptoms of nausea arrive. She is not to rely on the medication prophylactically. 7. We will see the patient back in followup visit for next in the series of cervical epidural injections. PROCEDURE NOTE DESCRIPTION OF PROCEDURE: C5-C6 cervical epidural steroid injection under fluoroscopic guidance. After obtaining written consent, the patient was taken back to fluoroscopy suite, placed in a prone position with separate pillows under chest and forehead to decrease cervical lordosis. Skin overlying the cervical area were then prepped and draped in aseptic fashion. The C5-C6 cervical interspace was identified by AP fluoroscopy. Skin and subcutaneous tissue overlying target site of injection was anesthetized with 1 mL of 1% lidocaine. A 20-gauge 3-1/2 inch Tuohy needle advanced under fluoroscopic guidance towards the epidural space using a midline approach. Epidural space identified using loss of resistance to air technique. After negative aspiration for heme or cerebrospinal fluid, 1 mL of Omnipaque injected. A cervical epidurogram confirmed using both AP and oblique fluoroscopy. After negative aspiration for heme or cerebrospinal fluid, 5 mL of a solution containing 2 mL 40 mg per mL, 80 mg total triamcinolone along with 3 mL of lidocaine 1% injected slowly. Needle retracted skilled nursing, flushed with 1 mL of 1% lidocaine and then removed. Sterile bandage placed over injection site. No new motor deficits present in the upper extremities following procedure. [address] [address] PAIN MANAGEMENT CONSULTATION Name: LEONIDAS FUNES Room #: REG [facility]#: [id number] Admission: 03/06/20 Attend Phys: Aditya Lea DO Discharge: Date of : 33 Report #: [id number] The patient tolerated the procedure well, carefully escorted to recovery room in stable condition. No apparent complications. After meeting discharge criteria, the patient discharged home. <ELECTRONICALLY SIGNED> By: Aditya Lea DO 03/07/20 1315 1336 1428 Aditya Lea DO /nt
== END | disposition home or self-care (01) ==
LOC: PAIN 06:52
PROVIDERS: ATTEND Anesthesiology Pain Medicine
DX: M47.22 Other spondylosis with radiculopathy, cervical region (principal); G89.29 Other chronic pain; I10 Essential (primary) hypertension; M19.90 Unspecified osteoarthritis, unspecified site; Z98.890 Other specified postprocedural states; Z79.899 Other long term (current) drug therapy; Z88.0 Allergy status to penicillin; Z88.2 Allergy status to sulfonamides

== ENCOUNTER → 2020-07-17 | Outpatient (CLI) | payer OTHER ==
[~2020-07-17] VITALS: Ht 160 cm; Wt 77.5 kg
[2020-07-17 14:17] VITALS: BP 136/54
--- NOTE | 2020-07-17 14:26 | NUR ---
Pain Clinic Assessment: 1. History of Osteoarthritis: LEGS NECK History of Rheumatoid Arthritis: Not Applicable 2. Height: 5 ft. 3 in. 160.0 cm. Weight: 170.8 lb. oz. 77.474 kg. Patient's BMI: 30.3 3. Vital Signs: BP: 136/54 Pulse: 91 Resp: 16 Temp: 02 Sat: 100 ECG Mon: 4. Pain Intensity: 7 5. Fall Risk: Dizziness: N Needs help standing or walking: N Fallen in the last 3 months: N Fall risk comments: 6. Patient on Blood Thinner: None 7. History of Hypertension: Y 8. Opioid Therapy greater than 6 weeks: N Opiate Contract Signed: 9. Risk Assessment Tool Provided: LOW RISK 0/3 10. Functional Assessment Tool: 55/ 11. Recreational Drug Use: Never Drug Type: Tobacco Use: Never Smoker Tobacco Type: Amount or Packs/day: How Many Years: Alcohol Use: No Frequency: Quant:
--- NOTE | 2020-07-18 11:11 | HPC ---
[facility] [address] [place] [address] PAIN MANAGEMENT CONSULTATION Name: LEONIDAS FUNES Room #: REG [facility]..#: [id number] Admission: 07/17/20 Attend Phys: Aditya Lea DO Discharge: Date of : 33 Report #: [id number] CC: Aditya Phan MD DATE OF SERVICE: 07/17/2020 REFERRING PHYSICIAN: Buddy Phan MD CHIEF COMPLAINT: Neck pain, left upper extremity pain and paresthesias. HISTORY OF PRESENT ILLNESS: As you know, the patient is an 84-year-old female who suffers from longstanding neck pain and left upper extremity pain and paresthesias due to cervical facet arthropathy and cervical radiculopathy. She returns today in followup visit having noted greater than 4 months' improvement in overall pain with cervical epidural injection provided at our visit of 03/06/2020. Unfortunately, her symptoms began about a day ago and has progressively worsened. She made today's appointment to undergo next in the series of cervical epidural injections to address ongoing pain. She denies injury or trauma that may have led to symptom continuation. She has done very well with previous injections, hopeful to see similar improvement today. ALLERGIES: SULFA, MORPHINE, IBUPROFEN, NAPROXEN. CURRENT MEDICATIONS: Tizanidine, hydrocodone, omeprazole, methocarbamol, Senokot, cranberry extract, docusate sodium, atorvastatin, and olmesartan. SOCIAL HISTORY: The patient denies tobacco, alcohol, IV or illicit drug use. She is accompanied by her granddaughter present in room today. IMAGING: No new imaging available. PQRS: The patient has known arthritic changes of the cervical spine, bilateral shoulders, bilateral hips and lumbar spine. No rheumatoid arthritis. She is placing her current pain score at 7/10. She is not a fall risk, has not had a fall in last 3 months. She is not on blood thinners, but is treated for hypertension. She is on chronic opioids and has a low opioid addiction potential. Pain impact of 55/70, severe interference of daily activities secondary to pain. PHYSICAL EXAMINATION: VITAL SIGNS: Blood pressure 136/54, pulse is 91, respiratory rate is 16 and unlabored. The patient is 100% on room air. Height 5 feet 3 inches tall, weight 170.8 pounds, BMI calculated 30.3. GENERAL: Well-developed, well-nourished, well-hydrated, confused and slightly disoriented 84-year-old female appearing stated age, pain is rated somewhere about 7/10. HEENT: Normocephalic, atraumatic. Pupils are equal, round and reactive. NEUROLOGIC: Speech is fluent for the patient. EXTREMITIES: Show no clubbing, no cyanosis. MUSCULOSKELETAL: Upper extremity strength remains symmetrical 5/5. Muscle bulk and tone is symmetrical in comparing left upper extremity to right. Deconditioning noted bilaterally. Spurling's test positive left, negative right. Cervical provocation testing is met with moderate restriction of motion, mainly to the left due to pain generation. She appears intact to light touch from C5-T1 dermatomes. ASSESSMENT: 1. Cervical radiculopathy. 2. Cervical spondylosis with radiculopathy. 3. Chronic intractable pain. PLAN: 1. The patient returns today in followup visit indicating about a 4-month increase in overall pain with a cervical epidural injection. She returns today in followup visit to discuss possibly undergoing the next in the series. The patient is beginning to notice lack of long-term efficacy with epidural injections. She is to get an epidural injection about every year and this improved her symptoms for an extended period of time. The most recent provided only 4 months' worth of decrease in pain. This is likely due to progression of her cervical findings. At this point, she is not considering surgical options and thus further imaging would not be necessary. We would recommend next in the series of cervical epidural injections. If again this is less than effective at treating her symptoms, then discussions may be necessary to discuss surgical decompression if necessary. We are hopeful the patient will continue to experience good benefit with cervical epidural injections. She returns today for the next in the series. She has been advised risks and benefits of the procedure, states understood and wishes to proceed. 2. In regards to medication management, it does appear she received methocarbamol from one of her physicians and apparently says on the bottle to be taken 1-2 tabs 4 times a day. We would not recommend this. The maximum dose of methocarbamol should be no more than three 500 mg tablets a day and this should only be used if her symptoms are related to muscle spasming. This should not be used for any other purpose. Given the patient's age and her underlying confusion at present, further per increasing her methocarbamol will just lead to side effects and dysphoric effects that could lead to falls and dangerous situations; we do not recommend this. She will follow up with the physician the route, the methocarbamol to confirm. 3. No medication changes made at today's visit. The patient will continue current medical therapy as prior prescribed. 4. We will see the patient back in followup visit on an as needed basis for possible next in the series of cervical epidural injections. PROCEDURE NOTE DESCRIPTION OF PROCEDURE: C7-T1 cervical epidural steroid injection under fluoroscopic guidance. After obtaining written consent, the patient was taken back to fluoroscopy suite, placed in prone position with separate pillows under chest and forehead to decrease cervical lordosis. Skin overlying the cervical area then prepped and draped in aseptic fashion. C7-T1 cervical interspace identified by AP fluoroscopy. Skin and subcutaneous tissue overlying target site injection anesthetized with 3 mL of 1% lidocaine. A 20-gauge 3-1/2 inch Tuohy needle advanced under fluoroscopic guidance towards the epidural space using a midline approach. Epidural space identified using loss of resistance to air technique. After negative aspiration for heme or cerebrospinal fluid, 1 mL of Omnipaque injected. A cervical epidurogram confirmed using both AP and oblique fluoroscopy. After negative aspiration for heme or cerebrospinal fluid, 5 mL of solution containing 2 mL 40 mg per mL, 80 mg total triamcinolone along with 3 mL of lidocaine 1% injected slowly. Needle then retracted nursing home, flushed with 1 mL of 1% lidocaine and then removed. Sterile bandage placed over injection site. No new motor deficits present in the upper extremities following procedure. The patient tolerated procedure well, carefully escorted to recovery room in stable condition. No apparent complications. After meeting discharge criteria, the patient discharged home. <ELECTRONICALLY SIGNED> By: Aditya Lea DO 07/18/20 1111 1727 [id number] Aditya Lea DO /nt
== END | disposition home or self-care (01) ==
LOC: PAIN 06:55
PROVIDERS: ATTEND Anesthesiology Pain Medicine
DX: M47.22 Other spondylosis with radiculopathy, cervical region (principal); G89.29 Other chronic pain; I10 Essential (primary) hypertension; M19.90 Unspecified osteoarthritis, unspecified site; Z98.890 Other specified postprocedural states; Z79.899 Other long term (current) drug therapy; Z87.891 Personal history of nicotine dependence; Z88.2 Allergy status to sulfonamides; Z88.8 Allergy status to other drugs, medicaments and biological substances

== ENCOUNTER → 2020-12-26 | Outpatient (CLI) | payer OTHER ==
[~2020-12-26] VITALS: Ht 160 cm; Wt 79.7 kg
[~2020-12-26] MED LIST changes: +MELOXICAM7.5 MG PO
[2020-12-26 10:21] VITALS: BP 139/59
--- NOTE | 2020-12-26 10:33 | NUR ---
Pain Clinic Assessment: 1. History of Osteoarthritis: LEGS NECK History of Rheumatoid Arthritis: Not Applicable 2. Height: 5 ft. 3 in. 160.0 cm. Weight: 175.6 lb. oz. 79.652 kg. Patient's BMI: 31.1 3. Vital Signs: BP: 139/59 Pulse: 86 Resp: 18 Temp: 02 Sat: 98 ECG Mon: 4. Pain Intensity: 9 5. Fall Risk: Dizziness: N Needs help standing or walking: Y Fallen in the last 3 months: N Fall risk comments: 6. Patient on Blood Thinner: None 7. History of Hypertension: Y 8. Opioid Therapy greater than 6 weeks: N Opiate Contract Signed: 9. Risk Assessment Tool Provided: LOW RISK 0/3 10. Functional Assessment Tool: 55/70 11. Recreational Drug Use: Never Drug Type: Tobacco Use: Never Smoker Tobacco Type: Amount or Packs/day: How Many Years: Alcohol Use: No Frequency: Quant:
--- NOTE | 2021-01-01 08:06 | HPC ---
[address] [place] [address] PAIN MANAGEMENT CONSULTATION Name: LEONIDAS FUNES Room #: REG FELISA Ana Cristina.#: [id number] Admission: 12/26/20 Attend Phys: Aditya Lea DO Discharge: Date of : 31 Report #: [id number] THIS REPORT FOR: cc: Buddy Phan MD, Stanley P. MD Johnson, James E. DO ~ DATE OF SERVICE: 12/26/2020 CHIEF COMPLAINT: Neck pain, left upper extremity pain with paresthesias. HISTORY OF PRESENT ILLNESS: As you know, the patient is an 85-year-old female who has had longstanding history of chronic neck pain, left upper extremity pain with paresthesias due to cervical facet arthropathy and cervical radiculopathy. She does well with epidural injections, returning today in followup visit to undergo next in the series. She is placing her current pain score at 8-9/10. She states that she was doing very well until just recently where she began to experience slow and progressive return of symptoms. She returns today in followup visit to undergo next in the series of cervical epidural injections. She denies any specific injury or trauma that may have led to symptom development. She has not had a COVID vaccination in the last 2 weeks nor she is planning to undergo a COVID injection in the next 2 weeks. She has had no changes in medication management that would preclude her from undergoing an epidural injection today. She returns today in followup visit to undergo cervical epidural injection and has requested refill of meloxicam, which has been provided by her PCP, but has not been able to follow up with them. ALLERGIES: SULFA, MORPHINE, IBUPROFEN, NAPROXEN. CURRENT MEDICATIONS: Tizanidine, hydrocodone, omeprazole, methocarbamol, Senokot, cranberry extract, docusate sodium, atorvastatin, meloxicam, and olmesartan. SOCIAL HISTORY: The patient denies tobacco, alcohol, IV or illicit drug use. She is unaccompanied today. IMAGING: No new imaging available. PQRS: The patient has known arthritic changes of the cervical spine, bilateral shoulders, bilateral hips and lumbar spine. No rheumatoid arthritis. She is placing pain anywhere from 7-05/07. She is not a fall risk, has not had a fall in last 3 months. She is not on any blood thinners, but is treated for hypertension. She is on chronic opioids, has a low opiate addiction potential based on our assessment tool. Pain impact reported today rated at 55/70, severe interference of daily activities secondary to pain. PHYSICAL EXAMINATION: [address] [address] PAIN MANAGEMENT CONSULTATION Name: LEONIDAS FUNES Room #: REG [facility]..#: [id number] Admission: 12/26/20 Attend Phys: Aditya Lea DO Discharge: Date of : 31 Report #: [id number] VITAL SIGNS: Blood pressure 136/54, pulse 91, respiratory rate 16 and unlabored. The patient is 100% on room air. Height 5 feet 3 inches tall, weight 170.8 pounds, BMI calculated at 30.3. GENERAL: Well-developed, well-nourished, well-hydrated 85-year-old female appearing stated age, pain is rated today at 7/10. HEENT: Normocephalic, atraumatic. Pupils equal, round and reactive. EXTREMITIES: Show no clubbing, no cyanosis. No appreciable edema. MUSCULOSKELETAL: Upper extremity strength is symmetrical 5/5. Muscle bulk and tone equal and symmetrical in upper extremities when comparing both left and right. There is deconditioning noted, but no muscle atrophy. Positive Spurling's test left. ASSESSMENT: 1. Cervical radiculopathy. 2. Cervical spondylosis with radiculopathy. 3. Chronic intractable pain. PLAN: 1. The patient returns today in followup visit to undergo cervical epidural injection under fluoroscopic guidance. She reports good efficacy with the previous epidural injection, almost 80% improvement in overall pain. This continued until just recently where she has had a slow and progressive return of symptoms. She denies any specific injury or trauma. She has made today's appointment to undergo next in the series of cervical epidural injections in hopes of building on success of previous intervention. The patient has been advised risks and benefits of the procedure, states she understood and wished to proceed. 2. The patient has requested that we provide a refill of meloxicam Apparently, the patient has been on meloxicam 7.5 mg once a day through her PCP, but has been unable to follow up with Dr. Phan to date. She requests refill of medications. We did discuss her reported allergies. There is no noted allergic reaction to meloxicam. We did provide her with a prescription with refills and she will follow up with the PCP to continue this therapy. 3. We plan to see the patient back in followup visit on an as needed basis for the next in the series of cervical epidural injections. We are hopeful the patient will see good and prolonged benefit with the procedure performed today. PROCEDURE NOTE DESCRIPTION OF PROCEDURE: C7-T1 cervical epidural steroid injection under fluoroscopic guidance. After obtaining written consent, the patient was taken back to fluoroscopy suite, placed in prone position with separate pillows under chest and forehead to decrease cervical lordosis. Skin overlying cervical area then prepped and draped in aseptic fashion. The C7-T1 interspace was identified by AP [facility] [address] [place] [address] PAIN MANAGEMENT CONSULTATION Name: LEONIDAS FUNES Room #: REG ANABELLinda De La Paz.#: [id number] Admission: 12/26/20 Attend Phys: Aditya Lea DO Discharge: Date of : 31 Report #: [id number] fluoroscopy. Skin and subcutaneous tissue overlying target site injection anesthetized with 3 mL of 1% lidocaine. A 20-gauge 3-1/2 inch Tuohy needle advanced under fluoroscopic guidance towards the epidural space using a midline approach. Epidural space identified using loss of resistance to air technique. After negative aspiration for heme or cerebrospinal fluid, 1 mL of Omnipaque injected. A cervical epidurogram was confirmed using both AP and lateral fluoroscopy. After negative aspiration for heme or cerebrospinal fluid, 5 mL of a solution containing 2 mL 40 mg per mL, 80 mg total triamcinolone along with 3 mL of lidocaine 1% injected slowly. Needle then retracted approximately half way, flushed with 1 mL of 1% lidocaine and then removed. Sterile bandage placed over injection site. No new motor deficits present in the lower extremities or upper extremities following procedure. The patient tolerated procedure well, carefully escorted to recovery room in stable condition. No apparent complications. After meeting discharge criteria, the patient discharged home. <ELECTRONICALLY SIGNED> By: Aditya Lea DO 01/01/21 [id number] Aditya Lea DO /gladis
== END | disposition home or self-care (01) ==
LOC: PAIN 06:54
PROVIDERS: ATTEND Anesthesiology Pain Medicine
DX: M47.22 Other spondylosis with radiculopathy, cervical region (principal); G89.29 Other chronic pain; I10 Essential (primary) hypertension; M19.90 Unspecified osteoarthritis, unspecified site; Z98.890 Other specified postprocedural states; Z79.899 Other long term (current) drug therapy; Z79.891 Long term (current) use of opiate analgesic; Z88.2 Allergy status to sulfonamides; Z88.8 Allergy status to other drugs, medicaments and biological substances